=== PATIENT | male | born 1995 | race Caucasian/White ===

== ENCOUNTER → 2023-09-05 16:59 | Outpatient (BNVA) | payer BC, SELFPAY | PROVIDERS: Visit Provider Nurse Practitioner Family | DX: F31.9 Bipolar disorder, unspecified (principal); R10.11 Right upper quadrant pain | CPT/HCPCS: 80053; 80061; 82150; 83690 ==

== ENCOUNTER 2023-09-19 06:01 | Outpatient (CLI) | payer BC, SELFPAY ==
--- NOTE | 2023-09-19 06:15 | US_ITS ---
WS: [id number] Complete ABDOMINAL ULTRASOUND HISTORY: RUQ ABD pain COMPARISON: None available. Liver: 16.3 cm in length. Normal size liver. Variable echogenicity throughout the liver. Geographic a reas of increased and decreased echogenicity. No displacement of the vessels. No increased vascularit y. Portal Vein: Normal hepatopetal flow with monophasic waveform. Gallbladder: Normally distended gallbladder with no stones or wall thickening. CBD: 0.5 cm Pancreas: Normal size and echogenicity. Right kidney: 10.8 cm x 5.5 x 5.8 cm. Cortex: 1.2 cm. Normal size and echogenicity. No hydronephrosis or mass. Left kidney: 10.5 cm x 4.8 cm x 5.3 cm. Cortex: 1.1 cm. Normal size and echogenicity. No hydronephrosis or mass. Spleen: Normal. Aorta and IVC: Unremarkable abdominal aorta and IVC. Impression: 1. Normal size liver with variable echogenicity throughout the liver. Favor this is most likely hepat ic steatosis with areas of sparing. Infiltrating neoplasm cannot be excluded on this appearance altho ugh felt less likely. Recommend follow-up CT or MRI. CT or MRI needs to be performed with and without contrast following liver protocol. 2. Otherwise negative.
== END 2023-09-19 06:02 | disposition home or self-care (01) ==
LOC: RAD 06:02
PROVIDERS: PCP Nurse Practitioner Family; Visit Provider Nurse Practitioner Family
DX: R10.11 Right upper quadrant pain (principal); R93.2 Abnormal findings on diagnostic imaging of liver and biliary tract
CPT/HCPCS: 76700

== ENCOUNTER 2023-09-30 15:08 | Outpatient (CLI) | payer BC, SELFPAY ==
--- NOTE | 2023-09-30 15:30 | CTR_ITS ---
PROCEDURE INFORMATION: Exam: CT Abdomen And Pelvis Without And With Contrast Exam date and time: 09/30/2023 4:17 PM Age: 28 years old Clinical indication: Abnormal findings; Abnormal radiologic finding of the abdomen; Patient HX: Abnormal US; Normal size liver with variable echogenicity throughout; PT states upper quadrant pain x2-3 yrs wo trauma; Additional info: Abnormal ultrasound, normal size liver with variable echogenicity throughout the TECHNIQUE: Imaging protocol: Computed tomography of the abdomen and pelvis without and with contrast. Radiation optimization: All CT scans at this facility use at least one of these dose optimization techniques: automated exposure control; mA and/or kV adjustment per patient size (includes targeted exams where dose is matched to clinical indication); or iterative reconstruction. Contrast material: OMNI 350; Contrast volume: 95 ml; Contrast route: INTRAVENOUS (IV); REPORTING DATA: Count of CT and Cardiac NM exams in prior 12 months: This patient has received 0 known CTs and 0 known cardiac nuclear medicine studies in the 12 months prior to the current study. COMPARISON: US abdomen complete* [id number] 09/19/2023 6:24 AM RADIATION DOSE METRICS: Total DLP (mGy-cm): 2202.88 FINDINGS: Liver: Mild hepatic steatosis without focal hepatic lesion, corresponding finding seen on recent ultrasound. Gallbladder and bile ducts: Normal. No calcified stones. No ductal dilation. Pancreas: Normal. No ductal dilation. Spleen: Normal. No splenomegaly. Adrenal glands: Normal. No mass. Kidneys and ureters: Normal. No hydronephrosis. Stomach and bowel: Unremarkable. No obstruction. No mucosal thickening. Appendix: No evidence of appendicitis. Intraperitoneal space: Unremarkable. No free air. No significant fluid collection. Vasculature: Unremarkable. No abdominal aortic aneurysm. Lymph nodes: Unremarkable. No enlarged lymph nodes. Urinary bladder: Unremarkable as visualized. Reproductive: Unremarkable as visualized. Bones/joints: Unremarkable. No acute fracture. Soft tissues: Small umbilical hernia containing omentum without bowel. CT/CT abdomen wo/w con [id number] IMPRESSION: 1. Mild hepatic steatosis without focal hepatic lesion, corresponding finding seen on recent ultrasound. Negative for focal concerning lesion. 2. Small umbilical hernia containing omentum without bowel.
[2023-09-30] MEDS: iohexol 350 mg/mL 500 mL Btl (per mL) PO (15:32)
[2023-09-30] MEDS: iohexol 350 mg/mL 500 mL Btl (per mL) IV (16:21)
== END 2023-09-30 15:09 | disposition home or self-care (01) ==
LOC: RAD 15:10
PROVIDERS: PCP Nurse Practitioner Family; Visit Provider Nurse Practitioner Family
DX: R10.11 Right upper quadrant pain (principal); K76.0 Fatty (change of) liver, not elsewhere classified; R93.5 Abnormal findings on diagnostic imaging of other abdominal regions, including retroperitoneum; K42.9 Umbilical hernia without obstruction or gangrene
CPT/HCPCS: 74170; Q9967

== ENCOUNTER 2024-03-28 14:00 | Outpatient (CLI) | payer BC, SELFPAY | END 2024-03-28 14:01 | disposition home or self-care (01) | LOC: SLEEP 03-29 17:05 | PROVIDERS: PCP Nurse Practitioner Family; Visit Provider Family Medicine | DX: G47.33 Obstructive sleep apnea (adult) (pediatric) (principal) | CPT/HCPCS: G0399 ==